=== PATIENT | female | born 1950 | race Caucasian/White ===

== ENCOUNTER 2017-10-17 12:35 | Inpatient (IN) | payer MEDICARE, SELFPAY ==
[~2017-10-17 12:35] MED LIST: ISOVUE-370 76%-LOCM 1 ML ONE
[2017-10-17 13:00] LABS: #Eosinphils 0.4 thou/uL (0.0-0.7); #Lymphocytes 2.9 thou/uL (1.20-3.40); #Monocytes 0.6 thou/uL (0.11-0.59); #Neutrophils 6.8 thou/uL (1.40-6.50); %Basophils 0.2 % (0.0-1.0); %Eosinophils 3.4 % (0.0-10.0); %Lymphocytes 27.2 % (21.0-51.0); %Monocytes 5.2 % (0.0-10.0); Hemoglobin 13.9 g/dL (12.0-16.0); Mean Corpuscular HGB CONC 34.3 g/dL (32.0-36.0); Mean Corpuscular Hemoglobin 31.2 pg (27.0-31.0); Mean Corpuscular Volume 90.9 fL (78.0-98.0); Mean Platelet Volume 6.4 fL (7.4-10.4); Platelet Count 258 thou/uL (130-400); RBC Distribution Width 11.6 % (11.5-14.5); Red Blood Cell (RBC) Count 4.45 mill/uL (4.20-5.40); White Blood Cell (WBC) Count 10.6 thou/uL (4.8-10.8)
[2017-10-17 13:12] LABS: ALT (SGPT) 19 U/L (8-55); AST (SGOT) 14 U/L (5-34); Albumin 4.2 g/dL (3.4-4.8); Alkaline Phosphatase 46 U/L (40-150); Anion Gap 13 mmol/L (10-20); BUN (Urea Nitrogen) 20 mg/dL (9.8-20.1); Bilirubin, Total 0.3 mg/dL (0.2-1.2); Calc. Creatinine Clearance 0 mL/min (70-130); Calcium 9.9 mg/dL (7.8-10.44); Carbon Dioxide 23 mmol/L (23-31); Chloride 110 mmol/L (98-107); Estimated GFR-MDRD 40; Globulin 2.5 g/dL (2.4-3.5); Glucose 132 mg/dL (80-115); Potassium 4.3 mmol/L (3.5-5.1); Protein, Total 6.7 g/dL (6.0-8.3); Sodium 142 mmol/L (136-145)
[2017-10-17 13:15] LABS: CKMB 1.7 ng/mL (0-6.6); Troponin I Less than 0.010 ng/mL (< 0.028)
[2017-10-17 13:37] LABS: INR-International Normal Ratio 1.1; Prothrombin Time 14.3 SEC (12.0-14.7)
[2017-10-17 13:39] LABS: PTT 20.7 SEC (22.9-36.1)
[2017-10-17 14:22] LABS: Acetaminophen Less than 6.0 mcg/mL (10.0-30.0); Alcohol Less than 10 mg/dL (Less than 10); Salicylate Less than 8.0 mg/dL (15.0-30.0)
[2017-10-17 14:36] LABS: Bilirubin Negative (Negative); Blood, Urine Trace (Negative); Clarity CLEAR (Clear); Glucose, Urine (Dipstick) Negative (Negative); Leukocyte Trace (Negative); Nitrite Negative (Negative); Protein, Urine (Dipstick) Negative (Neg-Trace); Specific Gravity, Urine 1.037 (1.002-1.036); Urobilinogen 0.2 mg/dL (0.2-1.0); pH, Urine 5.5 (5.0-9.0)
[2017-10-17 14:38] LABS: Bacteria/HPF None Seen HPF (None Seen); Hyaline Casts/LPF 0-3 HYALINE CAST LPF (0-3 Hyaline); Pathc Cast-AUWi Flag 0.29 (0-2.49); RBC/HPF 0-3 HPF (0-3); Squamous Epithelial 0-3 HPF (0-3)
--- NOTE | 2017-10-17 14:44 | CT ---
HEAD CT WITHOUT CONTRAST: DATE: 10/17/17. COMPARISON: None. HISTORY: Bilateral weakness and aphasia. TECHNIQUE: Serial axial CT imaging is obtained at 5 mm intervals from vertex through the skull base without cont rast. FINDINGS: The patient appears status post bilateral paranasal sinus surgery in the region of the maxillary sinu s outflow tracts. There is atherosclerotic calcification of the cavernous carotid arteries and dista l vertebral arteries. There is no acute osseous abnormality seen. No intracranial hemorrhage, midline shift, mass effect, or ventricular enlargement. IMPRESSION: No acute findings. Results called to Dr. Navarrete 12:46 p.m. 10/17/17. CODE CR POS: [facility]
[2017-10-17 14:48] LABS: Medtox Reader # READER 4; Tricyclic Screen Detected (NotDetected)
[2017-10-17 14:49] LABS: Amphetamine Not Detected (NotDetected); Barbiturates Screen Not Detected (NotDetected); Benzodiazepine Screen Not Detected (NotDetected); Cocaine Metabolite Screen Not Detected (NotDetected); Medtox Control Line Valid? VALID (VALID); Methadone Not Detected (NotDetected); Methamphetamine Not Detected (NotDetected); Opiate Screen Not Detected (NotDetected); Oxycodone Screen Not Detected (NotDetected); Phencyclidine (PCP) Not Detected (NotDetected); THC/Cannabinoid Screen Not Detected (NotDetected)
--- NOTE | 2017-10-17 15:20 | CT ---
CT ARTERIOGRAM NECK WITH IV CONTRAST AND 3D MIP IMAGING CT ARTERIOGRAM HEAD WITH IV CONTRAST AND 3D MIP IMAGING CT BRAIN WITH IV CONTRAST CT PERFUSION BRAIN: FINDINGS: There is good contrast flow into each carotid and vertebral artery with normal branching of the great vessels at the aortic arch. Minimal arterial calcification. Medial deviation of the right internal carotid artery. No significant carotid stenosis or dissection. [place] is intact. Good flow throughout each cerebral arterial system. No evidence of perf usion defect on the perfusion images. No abnormal areas of intracranial contrast enhancement. IMPRESSION: No significant abnormalities are demonstrated. Findings were called to Dr. Navarrete in the emergency department at 1311 hours. CODE CR POS: [facility]
--- NOTE | 2017-10-17 15:45 | HP ---
DATE OF ADMISSION: 10/17/2017 PRIMARY CARE PHYSICIAN: Dr. Yoseph Curran. REASON FOR ADMISSION: Altered mental status. HISTORY OF PRESENT ILLNESS: A 67-year-old female who has underlying history of hypertension, dyslipi demia, chronic low back pain and osteoarthritis who was brought to emergency room for altered mental status. The patient lives by herself at home. 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 Subsequently, her grandson went to her home and found her on the bed. She was les s responsive and she was incoherent. She was not talking properly and not providing correct answer. The patient was last seen normal last night before bedtime when the patient's daughter talked to her on phone. At that time, she was feeling weak and she was feeling tired and hung her phone. The patient's daughter is present who provides most of the history. They report that since the of the patient's , the patient is depressed and going downhill. She is taking a bunch of gris n medication at home. She does not take care of herself. She does not follow instructions. She bradford s not take medication regularly. She does not eat regularly. She does not drink regularly. The pat zechariah has trazodone and Flexeril on her home medication. In the emergency room, stroke alert was init iated and she had a CT brain, CT [place] and CT angiography of neck, which were normal. The patient was able to hold both lower extremities in particular position without any fall. The patien t did not have any facial asymmetry. The patient was intermittently arousable in the emergency room, but most of the time she was remaining sleepy, unable to get any history from her. REVIEW OF SYSTEMS: All review of systems tried to review with the patient, but unable to review leonela use the patient is extremely sleepy, lethargic and drowsy. PAST MEDICAL HISTORY: Chronic low back pain, osteoarthritis, hypertension, dyslipidemia. PAST SURGICAL HISTORY: Hysterectomy, cholecystectomy. PAST PSYCHIATRIC HISTORY: Anxiety and depression. SOCIAL HISTORY: The patient is . She does not have any history of tobacco, alcohol or illici t drug abuse based on family report. FAMILY HISTORY: No strong family history of premature coronary artery disease, stroke or cancer as p er family report. ALLERGIES: No known drug allergy. CURRENT HOME MEDICATIONS: Flexeril 10 mg 3 times daily, Zofran 4 mg q.8 hourly p.r.n., Lipitor 40 mg p.o. daily, vitamin D2 50,000 units once a week, TriCor 200 mg p.o. daily, trazodone 100 mg p.o. at bedtime, Keflex 500 mg q.8 hourly for 7 days, estradiol 2 mg p.o. daily. ADDITIONAL INFORMATION: The patient went to see primary care physician. She had some hematuria and a kidney stone and that is why she was given antibiotic therapy, which seems like she has finished co mpletely. EMERGENCY ROOM COURSE: Reviewed. PHYSICAL EXAMINATION: VITAL SIGNS: On arrival, blood pressure 133/86, pulse 92, respiratory rate 18, temperature 97.6, sat uration 93% on room air, weight did not measure yet. GENERAL: The patient is sleepy, not arousable. HEENT: Head, normocephalic, atraumatic. Eyes, pupils round and reactive to light. Extraocular musc le intact. No nystagmus. ENT, oropharynx within normal limits. Moist mucous membranes. No oral le landon, no pharyngeal erythema, no exudate. NECK: Supple, no JVD, no thyromegaly, no carotid bruit, no meningeal signs of irritation. LUNGS: Clear to auscultation without any rhonchi or rales. CARDIAC: S1, S2 regular. No murmur, no gallop, no rub. ABDOMEN: Soft, bowel sounds present, nontender, nondistended. No organomegaly, no mass, no suprapub ic tenderness. BACK: Unremarkable. No CVA tenderness. EXTREMITIES: Upper extremities, passive movement of all joints are normal. Lower extremities, no ed myriam. Good peripheral pulsation. SKIN: No skin rash. HEMATOLOGICAL: No lymphadenopathy. NEUROLOGIC: Unable to examine neurologically because the patient is not cooperative. She is sleepy. Detailed neurological examination is not possible, but noted that patient is holding both lower ext remities in bended position without any fall and she does not have any facial asymmetry. SIGNIFICANT LABORATORY DATA: CBC, WBC 10.6, hemoglobin 13.9, platelet 258,000. INR 1.1. BMP, sodiu m 142, potassium 4.3, chloride 110, carbon dioxide 23, anion gap 13, BUN 20, creatinine 1.32, glucose 132, calcium 9.9. LFT, AST 14, ALT 19, alkaline phosphatase 46, albumin 4.2, CK-MB 1.7. Troponin I less than 0.010. IMAGING: CT brain, based on my review, no acute intracranial process. CT head and neck angiography with perfusion study, negative for any stroke. ASSESSMENT AND PLAN: 1. Acute encephalopathy. Based on clinical history and examination, I am suspecting that medication overdoses are suspected. At this point, we will check urine drug screen. We will discontinue all h er sleeping medication today. We will wait for her arousability. We will consult Neurology. We kylie l check lipid profile, homocysteine for any remote possibility of stroke. We will monitor neurologic ally. We will monitor on telemetry floor. 2. Acute kidney injury. The patient will be given IV fluid, dextrose with NS at 100 mL per hour. 3. Dyslipidemia. We will continue TriCor 145 mg and Lipitor 40 mg p.o. at bedtime. 4. Chronic low back pain. We will hold on pain medication because of extreme sleepiness condition. Once awake, then we will resume the patient's selected home medication. 5. Deep venous thrombosis prophylaxis. Lovenox 40 mg subcu daily. 6. Gastrointestinal prophylaxis. Pepcid 20 mg p.o. b.i.d. 7. Protein calorie malnutrition. The patient will be given nutritional supplement with Ensure t.i.d . Disposition plan based on clinical course. The patient and family member given education about that patient may need psychiatric followup for her underlying possible depression. She will need family s upport. The patient will need PT, OT evaluation tomorrow and depending upon clinical improvement, we will consider next level of care. We will send urine culture and start empiric Rocephin 1 g q.24 ho urs for asymptomatic bacteriuria. Plan of care discussed with the family member at bedside in the em ergency room.
[2017-10-17] MEDS ORDERED: Ondansetron ODT 4 MG TAB SL PRN (16:23)
[2017-10-17] MEDS ORDERED: Acetaminophen 325 MG TAB PO PRN (16:23)
[2017-10-17] MEDS ORDERED: Ondansetron HCl/PF 4 MG/2 ML Vial IVP PRN (16:23)
[2017-10-17] MEDS ORDERED: HYDROcodone/Acetaminophen 5/325 mg Tablet PO PRN ×2 (16:23)
[2017-10-17] MEDS ORDERED: Senokot 8.6 MG TAB PO PRN (16:50)
[2017-10-17] MEDS ORDERED: hydrALAZINE 20 MG/ML VIAL SLOW IVP PRN (16:50)
[2017-10-17] MEDS ORDERED: Artificial Tears 18 DROP/0.9 ML EA EYE PRN (16:50)
[2017-10-17] MEDS ORDERED: Mag-Al 1200 mg/1200 mg/30 ML UDCUP PO PRN (16:50)
[2017-10-17] MEDS ORDERED: Ondansetron ODT 4 MG TAB PO PRN (16:50)
[2017-10-17] MEDS ORDERED: Sodium Chloride 0.65% Nasal 44 ML BOT EA NARE PRN (16:50)
[2017-10-17] MEDS ORDERED: Milk Of Magnesia 30 ML UDCUP PO PRN (16:50)
[2017-10-17] MEDS ORDERED: Diabetic Tussin 200 MG/10 ML UDCUP PO PRN (16:50)
[2017-10-17] MEDS ORDERED: Chloraseptic Spray 180 ml Bottle PO PRN (16:50)
[2017-10-17] MEDS ORDERED: Eucerin (Mineral Oil/Petrolatum,White) 30 gm Jar TOP PRN (16:50)
[2017-10-17] MEDS ORDERED: Loperamide HCl 2 MG CAP PO PRN (16:50)
[2017-10-17] MEDS: cefTRIAXone\\ROCEPHIN 1 GM in Sodium Chloride 0.9% 100 ML IVPB SCH (18:10)
[2017-10-17] MEDS: Dextrose 5 % And 0.9 % NaCl 1,000 ML IV SCH (18:10)
[2017-10-17 18:35] VITALS: BMI 24.8
[2017-10-17] MEDS: Atorvastatin Calcium 40 MG TAB PO SCH (21:17)
[2017-10-17] MEDS: Famotidine 20 MG TAB PO SCH (21:17)
[2017-10-17] MEDS: Ondansetron HCl/PF 4 MG/2 ML Vial IVP PRN (21:18)
[2017-10-18] MEDS: Dextrose 5 % And 0.9 % NaCl 1,000 ML IV SCH ×3 (04:04→16:07)
[2017-10-18] MEDS: Ondansetron HCl/PF 4 MG/2 ML Vial IVP PRN ×2 (05:01→21:32)
[2017-10-18] MEDS: Famotidine 20 MG TAB PO SCH ×2 (09:10→21:29)
[2017-10-18] MEDS: Fenofibrate Nanocrystallized 145 MG TAB PO SCH (09:10)
[2017-10-18] MEDS: Estradiol 1 MG TAB PO SCH (09:10)
[2017-10-18] MEDS: Enoxaparin Sodium 40 MG/0.4 ML SYRINGE SC SCH (09:10)
[2017-10-18] MEDS: Aspirin 325 mg Enteric Coated Tablet PO SCH (09:10)
[2017-10-18] MEDS: Acetaminophen 325 MG TAB PO PRN ×3 (10:20→21:29)
--- NOTE | 2017-10-18 10:36 | PDOC.PN ---
- Subjective Encounter Start Date: 10/18/17 Encounter Start Time: 07:40 Patient seen and examined. No new complaints. No overnight events - Objective Resuscitation Status: Resuscitation Status FULL:Full Resuscitation MAR Reviewed: Yes Vital Signs & Weight: Vital Signs (12 hours) Temp Pulse Resp BP Pulse Ox 10/18/17 07:36 97.8 F 88 16 132/70 99 10/18/17 04:00 97.5 F L 83 19 114/69 96 10/18/17 00:00 98.1 F 93 19 130/80 96 Weight Weight 136 lb I&O: 10/17/17 10/18/17 10/19/17 06:59 06:59 06:59 Intake Total 1350 Output Total 300 Balance 1050 Result Diagrams: 10/17/17 12:45 10/17/17 12:45 Additional Labs: Accuchecks 10/17/17 12:41 POC Glucose 128 H EKG Reviewed by me: Yes (nsr) Phys Exam - Physical Examination Constitutional: NAD HEENT: PERRLA, moist MMs, sclera anicteric Neck: no JVD, supple Respiratory: no wheezing, no rales, no rhonchi Cardiovascular: RRR, no significant murmur, no rub Gastrointestinal: soft, non-tender, no distention, positive bowel sounds Musculoskeletal: no edema, pulses present Neurological: non-focal, normal sensation, moves all 4 limbs Lymphatic: no nodes Psychiatric: normal affect, A&O x 3 Skin: no rash, normal turgor Dx/Plan (1) Acute kidney failure Status: Acute (2) Encephalopathy acute Code(s): G93.40 - ENCEPHALOPATHY, UNSPECIFIED Status: Resolved (3) Chronic low back pain Code(s): M54.5 - LOW BACK PAIN; G89.29 - OTHER CHRONIC PAIN Status: Chronic Qualifiers: Back pain laterality: left Sciatica laterality: sciatica of left side (4) Dyslipidemia Code(s): E78.5 - HYPERLIPIDEMIA, UNSPECIFIED Status: Chronic (5) Lumbar canal stenosis Code(s): M48.061 - SPINAL STENOSIS, LUMBAR REGION WITHOUT NEUROGENIC DRE Status: Chronic - Plan cont current plan of care * pt has underlying chronic low back pain with lumbar radiculopathy and she was overmadicating herself with flexeril and trazodone, that was contributing to her AMS, currently does not have focal deficit, she is more alert * will get MRI LS to rule out any need for surgery, she will need follow up with neurosurgery for that * will observe today and expecting discharge tomorrow * medication reviewed as below * symptomatic treatment * do PT/OT today * pain control. Review of Systems - Review of Systems Constitutional: negative: fever, chills, sweats, weakness, malaise, other Eyes: negative: Pain, Vision Change, Conjunctivae Inflammation, Eyelid Inflammation, Redness, Other ENT: negative: Ear Pain, Ear Discharge, Nose Pain, Nose Discharge, Nose Congestion, Mouth Pain, Mouth Swelling, Throat Pain, Throat Swelling, Other Respiratory: negative: Cough, Dry, Shortness of Breath, Hemoptysis, SOB with Excertion, Pleuritic Pain, Sputum, Wheezing Cardiovascular: negative: chest pain, palpitations, orthopnea, paroxysmal nocturnal dyspnea, edema, light headedness, other Gastrointestinal: negative: Nausea, Vomiting, Abdominal Pain, Diarrhea, Constipation, Melena, Hematochezia, Other Genitourinary: negative: Dysuria, Frequency, Incontinence, Hematuria, Retention , Other Musculoskeletal: Back Pain. negative: Neck Pain, Shoulder Pain, Arm Pain, Hand Pain, Leg Pain, Foot Pain, Other Neurological: negative: Weakness, Numbness, Incoordination, Change in Speech, Confusion, Seizures, Other - Medications/Allergies Allergies/Adverse Reactions: Allergies Allergy/AdvReac Type Severity Reaction Status Date / Time diflunisal [From Dolobid] Allergy Verified 10/17/17 16:07 Medications: Current Medications Acetaminophen (Tylenol) 650 mg PO Q4H PRN PRN Reason: Headache/Fever or Pain Last Admin: 10/18/17 10:20 Dose: 650 mg Al Hydroxide/Mg Hydroxide (Maalox) 30 ml PO Q6H PRN PRN Reason: Heartburn or Indigestion Artificial Tears (Tears Naturale) 0 drop EA EYE PRN PRN PRN Reason: Dry Eyes Aspirin (Ecotrin) 325 mg PO DAILY [facility] Last Admin: 10/18/17 09:10 Dose: 325 mg Atorvastatin Calcium (Lipitor) 40 mg PO HS [facility] Last Admin: 10/17/17 21:17 Dose: 40 mg Enoxaparin Sodium (Lovenox) 40 mg SC 0900 [facility] Last Admin: 10/18/17 09:10 Dose: 40 mg Estradiol (Estrace) 1 mg PO DAILY [facility] Last Admin: 10/18/17 09:10 Dose: 1 mg Famotidine (Pepcid) 20 mg PO BID [facility] Last Admin: 10/18/17 09:10 Dose: 20 mg Fenofibrate (Tricor) 145 mg PO DAILY [facility] Last Admin: 10/18/17 09:10 Dose: 145 mg Guaifenesin (Robitussin Sf) 200 mg PO Q4H PRN PRN Reason: Cough Hydralazine HCl (Apresoline) 10 mg SLOW IVP Q4H PRN PRN Reason: Systolic BP > 180 Dextrose/Sodium Chloride (D5 0.9% Ns) 1,000 mls @ 100 mls/hr IV .Q10H [facility] Last Admin: 10/18/17 04:04 Dose: 1,000 mls Ceftriaxone Sodium 1 gm/ (Sodium Chloride) 100 mls @ 200 mls/hr IVPB Q24HR [facility] Last Admin: 10/17/17 18:10 Dose: 100 mls Loperamide HCl (Imodium) 2 mg PO PRN PRN PRN Reason: Diarrhea/Loose Stools Magnesium Hydroxide (Milk Of Magnesium) 30 ml PO DAILYPRN PRN PRN Reason: Constipation Mineral Oil/White Petrolatum (Eucerin Cream) 0 gm TOP BIDPRN PRN PRN Reason: Dry Skin Ondansetron HCl (Zofran Odt) 4 mg PO Q6H PRN PRN Reason: Nausea/Vomiting Ondansetron HCl (Zofran) 4 mg IVP Q6H PRN PRN Reason: Nausea/Vomiting Last Admin: 10/18/17 05:01 Dose: 4 mg Phenol (Chloraseptic [place] 180 Ml Bot) 0 ml PO PRN PRN PRN Reason: Sore Throat Senna (Senokot) 2 tab PO HSPRN PRN PRN Reason: Constipation Sodium Chloride ([place] Nasal [place] 0.65%) 0 ml EA NARE QIDPRN PRN PRN Reason: Nasal Congestion Sodium Chloride (Flush - Normal Saline) 10 ml IVF PRN PRN PRN Reason: Saline Flush
--- NOTE | 2017-10-18 13:11 | MRI ---
NONCONTRAST ENHANCED MRI IMAGES OF THE BRAIN: History: Fall, weakness, aphasia. Technique: Multiplanar, multisequence noncontrast enhanced MRI images were obtained of the brain. FINDINGS: Images demonstrate no evidence of areas of diffusion restriction. No evidence of acute intracranial m asses, hemorrhages, strokes or contusions seen. The ventricles are of normal size. Normal flow voids seen in the major intracranial vessels. IMPRESSION: Unremarkable noncontrast enhanced MRI images of the brain. POS: [facility]
--- NOTE | 2017-10-18 13:27 | MRI ---
MRI CERVICAL SPINE WITHOUT CONTRAST: HISTORY: Bilateral lower extremity weakness, aphasia. The patient fell 2 days ago. COMPARISON: None. TECHNIQUE: A lumbar spine MRI is performed without intravenous Gadolinium administration. Multisequential, mult iplanar imaging is performed. FINDINGS: Symmetric signal intensity of the psoas muscles. There are T2 hyperintensities in the left renal cor thomas compatible with cysts. Conus medullaris terminates at the inferior aspect of T12. Heterogeneous marrow signal intensity in the lumbar spine likely due to senescent change. No loss of vertebral body height. No fracture. No significant STIR hyperintensity to suggest edema or ligamen tous injury. There are type I and type II Modic changes along the inferior left end plate of L4 and superior left end plate of L5. T12-L1: No significant central canal stenosis or foraminal narrowing. L1-L2: Desiccation with mild loss of disk space height. There are small left and right paracentral disk bulges. Mild central canal stenosis. Neural foramina are patent bilaterally. L2-L3: Generalized disk bulge, ligamentum flavum thickening, and facet hypertrophy result in moderat e to severe central canal stenosis. Mild right and minimal left neural foraminal narrowing. L3-L4: Adequate disk hydration. No significant loss of disk space height. Generalized disk bulge, ligamentum flavum thickening, and facet hypertrophy result I moderate to severe central canal stenosi s. Neural foramina are patent bilaterally. L4-L5: Moderate loss of disk space height. There is a broad-based disk bulge with a central and lef t subarticular superior disk protrusion. There is bilateral facet hypertrophy with a likely left-carmen ed synovial cyst. There is resultant severe central canal stenosis. There is narrowing of the left subarticular zone with obscuration of the traversing left L5 nerve root. There is also presumed mass effect upon the traversing left S1 nerve root without complete obscuration. Mild to moderate right and moderate left foraminal narrowing. L5-S1: No high-grade central canal stenosis. Neural foramina are patent. IMPRESSION: Degenerative disk disease of the lumbar spine as above. There is significant central canal stenosis at multiple levels as described above. POS: [facility]
[2017-10-18] MEDS: cefTRIAXone\\ROCEPHIN 1 GM in Sodium Chloride 0.9% 100 ML IVPB SCH (18:17)
[2017-10-18] MEDS: Atorvastatin Calcium 40 MG TAB PO SCH (21:29)
--- NOTE | 2017-10-18 22:23 | CON ---
DATE OF CONSULTATION: 10/18/2017 CONSULTING PHYSICIAN: Hospitalist Service. IMPRESSION: 1. Toxic encephalopathy secondary to medication overuse 2. Lumbar spinal stenosis with radicular pain. 3. Cervical spinal stenosis at C3-4 and C4-5 with some cord compression. PLAN: Neurosurgical followup as an outpatient. HISTORY OF PRESENT ILLNESS: Ms. Hernandez is a 67-year-old white female, who has been seen by Dr. Dami carmen at [facility] for management of left hip pain. This is attributed to lumbar spinal stenosis . She has had 3 epidural steroid injections. She was prescribing a combination of tramadol, Flexeri l, baclofen as well as some ongoing treatment with Seroquel. She apparently admits to having taken t oo much medication and was found naked lying in her bed. Her grandson was able to arouse her and she did not report any focal neurologic symptoms when she regained consciousness. He called EMS to have her brought in. She has had an MRI of the brain, which was normal. MRI of the cervical spine, [facility] was as noted above. Her laboratory studies were unremarkable. CTA of the cerebral vessels and car otids were also clear. Drug screen was positive for tricyclics. PAST MEDICAL HISTORY: Otherwise negative. SOCIAL HISTORY: Positive for tobacco. ALLERGIES: None. FAMILY HISTORY: Noncontributory. REVIEW OF SYSTEMS: No focal neurologic complaints. PHYSICAL EXAMINATION: GENERAL: She is a healthy appearing middle-aged woman, in no distress. HEENT: Pupils are equal and reactive. Conjunctivae are clear. NECK: Supple. EXTREMITIES: No cyanosis. NEUROLOGIC: She is alert and appropriate. Her speech is fluent. Her exam is nonfocal. SUMMARY: A 67-year-old woman, who overdosed on medications, resulting in sedation. She had some chr onic issues with pain that had not responded to medical management. She will likely need a surgical consultation. She also has cervical spinal stenosis that is moderately severe and raising some katelyn rn for possible cervical myelopathy. Again, Neurosurgery needs to weigh in on her case.
[2017-10-19] MEDS: Acetaminophen 325 MG TAB PO PRN ×3 (01:25→17:04)
[2017-10-19] MEDS: Ondansetron HCl/PF 4 MG/2 ML Vial IVP PRN (02:36)
[2017-10-19] MEDS: Dextrose 5 % And 0.9 % NaCl 1,000 ML IV SCH (04:58)
[2017-10-19] MEDS: Fenofibrate Nanocrystallized 145 MG TAB PO SCH (08:29)
[2017-10-19] MEDS: Aspirin 325 mg Enteric Coated Tablet PO SCH (08:30)
[2017-10-19] MEDS: Estradiol 1 MG TAB PO SCH (08:30)
[2017-10-19] MEDS: Famotidine 20 MG TAB PO SCH (08:30)
[2017-10-19] MEDS: Enoxaparin Sodium 40 MG/0.4 ML SYRINGE SC SCH (08:42)
--- NOTE | 2017-10-19 09:58 | DIS ---
DATE OF ADMISSION: 10/17/2017 DATE OF DISCHARGE: 10/19/2017 PRIMARY CARE PHYSICIAN: [facility] call admission. DISCHARGE DISPOSITION: Home. PRIMARY DISCHARGE DIAGNOSES: 1. Acute encephalopathy due to overuse of medication. 2. Acute kidney failure, improved. SECONDARY DISCHARGE DIAGNOSES: Chronic low back pain, lumbar stenosis, dyslipidemia. PRIMARY PROCEDURE/OPERATION: None. RADIOLOGICAL INVESTIGATION: CT brain normal. CT head and neck angiography with brain perfusion normal. MRI brain normal. MRI of the lumbar spine showed multilevel lumbar stenosis. SIGNIFICANT LABORATORY DATA: WBC 10.6, hemoglobin 13.9, platelet 258. INR 1.1 , creatinine 1.32. LFT normal. Electrolytes normal. Cardiac enzymes negative. LDL 97. Homocysteine 7.32. Urinalysis; leukocyte esterase small. Urine drug screen positive for tricyclic. Blood drug screen negative. Urine culture negative. DISCHARGE MEDICATIONS: Patient is advised to finish Keflex 500 mg p.o. q.6 hourly p.r.n., which was prescribed for her UTI, vitamin D2 50,000 units p.o. weekly, Zofran 4 mg q.8 hourly p.r.n., Lipitor 40 mg p.o. daily, Flexeril 10 mg t.i.d. p.r.n., Estrace 2 mg p.o. daily, fenofibrate 200 mg p.o. daily, trazodone 100 mg p.o. at bedtime, tramadol 50 mg t.i.d. p.r.n. CONTRAINDICATIONS: None. CODE STATUS: FULL CODE. INPATIENT SCRAPER OPERATOR: Dr. Jose Hennessy neurologist was consulted. TEST RESULTS PENDING ON DISCHARGE: None. ALLERGIES: DIFLUNISAL. DISCHARGE DISPOSITION: The patient is discharged home. DISCHARGE PLAN: Patient will be following up with primary care physician and neurosurgeon as an outpatient basis. HOSPITAL COURSE: A 67-year-old female who has chronic low back pain. The patient was brought to ER by paramedics for altered mental status. She was completely lethargic and sleepy. Stroke alert was initiated in the emergency room and she had CT brain, CT head and neck angiography with brain perfusion study that was normal. Her examination in the emergency room was also not consistent with stroke, but patient was not able to provide any history on admission. When she woke up the next day, patient reported that she was overusing her trazodone and Flexeril for her chronic back pain that made her sleepy. We did MRI brain which was normal. MRI lumbar spine did show lumbar radiculopathy and multilevel lumbar spine stenosis. She was following a neurosurgeon at [facility], but she does not like that neurosurgeon and that is why she was interested in following up in our neurosurgeon. We consulted neurosurgeon, Dr. Lloyd recommended that he will evaluate this patient as an outpatient basis which I agree. The patient was given Rocephin for asymptomatic UTI. Her cultures remain negative. She will finish her Keflex which was given recently. She will continue all her previous medications during this admission. This patient did not have any TIA or stroke. She will continue all her previous medicine. Necessary equipment she will get through primary care physician. The patient is seen and examined at bedside today. She is neurologically intact. She does have left-sided radicular pain which is chronic. PHYSICAL EXAMINATION: VITAL SIGNS: Vitals peñaloza, she is stable. Currently, temperature 97.9, pulse 92 , respiratory rate 16, saturation 98%, blood pressure 137/72 and weight 136 pounds. LUNGS: Clear to auscultation without any rhonchi or rales. CARDIAC: S1, S2 regular without any murmur. ABDOMEN: Soft and benign without any tenderness. No suprapubic tenderness. EXTREMITIES: No edema, no calf tenderness. NEUROLOGIC: Nonfocal examination other than radicular pain on the left side. REVIEW OF SYSTEMS: Negative other than back pain. The patient will follow up with the neurosurgeon and primary care physician. WALKER PRESCRIBED ON DISCHARGE MTDD
--- NOTE | 2017-10-19 15:10 | CT ---
CT ARTERIOGRAM NECK WITH IV CONTRAST AND 3D MIP IMAGING CT ARTERIOGRAM HEAD WITH IV CONTRAST AND 3D MIP IMAGING CT BRAIN WITH IV CONTRAST CT PERFUSION BRAIN: FINDINGS: There is good contrast flow into each carotid and vertebral artery with normal branching of the great vessels at the aortic arch. Minimal arterial calcification. Medial deviation of the right internal carotid artery. No significant carotid stenosis or dissection. [place] is intact. Good flow throughout each cerebral arterial system. No evidence of perf usion defect on the perfusion images. No abnormal areas of intracranial contrast enhancement. IMPRESSION: No significant abnormalities are demonstrated. Findings were called to Dr. Navarrete in the emergency department at 1311 hours. CODE CR
[2017-10-19 16:35] VITALS: BP 137/67; TEMP 98.8
== END 2017-10-19 17:37 | disposition home or self-care (01) | DRG 917 ==
LOC: ERS 12:35 → 2SE 15:41
PROVIDERS: ADMIT Internal Medicine; ATTEND Internal Medicine
DX: T40.4X1A Poisoning by other synthetic narcotics, accidental (unintentional), initial encounter (principal); G92 Toxic encephalopathy; E46 Unspecified protein-calorie malnutrition; N17.9 Acute kidney failure, unspecified; T48.1X1A Poisoning by skeletal muscle relaxants [neuromuscular blocking agents], accidental (unintentional), initial encounter; T42.8X1A Poisoning by antiparkinsonism drugs and other central muscle-tone depressants, accidental (unintentional), initial encounter; I10 Essential (primary) hypertension; E78.5 Hyperlipidemia, unspecified; G89.29 Other chronic pain; I08.1 Rheumatic disorders of both mitral and tricuspid valves; M19.90 Unspecified osteoarthritis, unspecified site; F41.9 Anxiety disorder, unspecified; F32.9 Major depressive disorder, single episode, unspecified; M48.061 Spinal stenosis, lumbar region without neurogenic claudication; Z90.49 Acquired absence of other specified parts of digestive tract; Z90.710 Acquired absence of both cervix and uterus
CPT/HCPCS: 0042T; 36415; 36416; 70450; 70496; 70498; 70551; 72148; 80053; 80061; 80306; 80307; 81003; 81015; 82553; 83090; 84484; 85025; 85610; 85730; 87086; 93005; 93306; G8978-GP-CL; G8979-GP-CJ; G8987-GO-CJ; G8988-GO-CI; G8996-GN-CH; G8997-GN-CH; J0696; J1650; J2405; J7050; Q0162

== ENCOUNTER 2018-07-18 10:50 | Day surgery (SDC) | payer MEDICARE ==
[2018-07-17 11:11] VITALS: BMI 20.7
[2018-07-18] MEDS ORDERED: Midazolam HCl 2 mg/2 ml Vial ONE (13:16)
[2018-07-18] MEDS ORDERED: Fentanyl 100 MCG/2 ML VIAL ONE (13:16)
--- NOTE | 2018-07-18 14:19 | MRI ---
LUMBAR SPINE MRI WITHOUT IV CONTRAST: History: Low back pain. Lumbar stenosis. Lumbar herniated nucleus pulposus. Left leg and back pain. Comparison: 10-18-17 FINDINGS: There are extensive multilevel disc osteophytosis and facet arthrosis changes and disc desiccation ch anges. Multiple bilateral renal T2 hyperintense foci statistically bilateral renal cysts. T12-L1: Unremarkable. L1-2: Disc osteophytosis with mild to moderate lateral recess stenosis. L2-3: Severe disc osteophytosis with moderate to severe central canal and severe lateral recess steno sis and moderate bilateral foraminal stenosis. L3-4: Severe disc osteophytosis with severe central canal, lateral recess, and moderate to severe rosalina ateral foraminal stenosis. L4-5: Type I endplate changes. Severe disc osteophytosis with severe central canal, lateral recess an d foraminal stenosis particularly on the left. L5-S1: Mild disc bulging without significant central canal or foraminal stenosis. IMPRESSION: Variable severity multilevel canal, lateral recess, and foraminal stenosis most marked at L4-5 with s ome associated type I endplate changes with little change from prior study. POS: [facility]
--- NOTE | 2018-07-18 16:59 | EKG ---
Test Reason : PREOP Blood Pressure : / mmHG Vent. Rate : 084 BPM Atrial Rate : 084 BPM P-R Int : 156 ms QRS Dur : 080 ms QT Int : 370 ms P-R-T Axes : 041 -07 041 degrees QTc Int : 437 ms Normal sinus rhythm Possible Inferior infarct , age undetermined Abnormal ECG When compared with ECG of 17-OCT-2017 13:18, No significant change was found Confirmed by DR. Deonte SIMPSON (3) on 07/18/2018 4:59:07 PM Referred By: NOEMI Confirmed By:DR. Deonte SIMPSON
== END 2018-07-18 15:25 | disposition home or self-care (01) ==
LOC: SDC/OP 10:50
PROVIDERS: ATTEND Surgery
DX: M51.26 Other intervertebral disc displacement, lumbar region (principal); M48.061 Spinal stenosis, lumbar region without neurogenic claudication; M25.78 Osteophyte, vertebrae
CPT/HCPCS: 72148; 93005; 93010; J2250; J3010

== ENCOUNTER 2018-08-15 08:15 | Day surgery (SDC) | payer MEDICARE ==
[2018-08-14 09:25] VITALS: BMI 20.2
[2018-08-15 09:48] LABS: INR-International Normal Ratio 1.1; PTT 24.5 SEC (22.9-36.1); Prothrombin Time 14.7 SEC (12.0-14.7)
[2018-08-15] MEDS ORDERED: Thrombin 5000 UNITS/5 ML VIAL ONE (11:00)
[2018-08-15] MEDS ORDERED: Sodium Chloride 0.9% 10 ML ONE (11:00)
[2018-08-15] MEDS ORDERED: Midazolam HCl 2 mg/2 ml Vial ONE (11:21)
[2018-08-15] MEDS ORDERED: Fentanyl 100 MCG/2 ML VIAL ONE ×4 (11:21→15:24)
[2018-08-15] MEDS ORDERED: Milk Of Magnesia 30 ML UDCUP PO PRN (14:56)
[2018-08-15] MEDS ORDERED: Promethazine HCl 25 MG/ML VIAL IM/IV PRN (14:56)
[2018-08-15] MEDS ORDERED: Bisacodyl 10 MG SUPP PR PRN (14:56)
[2018-08-15] MEDS ORDERED: Mag-Al 1200 mg/1200 mg/30 ML UDCUP PO PRN (14:56)
[2018-08-15] MEDS ORDERED: Fleet Enema 133 ML BOT PR PRN (15:00)
[2018-08-15] MEDS ORDERED: HYDROmorphone 2 MG/ML VIAL SLOW IVP PRN (15:10)
[2018-08-15] MEDS ORDERED: Promethazine HCl 25 MG/ML VIAL IM PRN (15:10)
[2018-08-15] MEDS ORDERED: PACU-Morphine 4MG/ML VIAL SLOW IVP PRN (15:10)
[2018-08-15] MEDS ORDERED: Ondansetron HCl/PF 4 MG/2 ML Vial IVP PRN (15:10)
[2018-08-15] MEDS ORDERED: Morphine Sulfate 2 MG/ML SYRINGE SLOW IVP PRN (15:10)
[2018-08-15] MEDS ORDERED: Promethazine HCl 25 MG/ML VIAL SLOW IVP PRN (15:10)
[2018-08-15] MEDS ORDERED: Meperidine HCl/PF 25 MG/ML VIAL SLOW IVP PRN (15:10)
[2018-08-15] MEDS ORDERED: Rizatriptan Benzoate 10 MG MLT TAB PO PRN (15:26)
[2018-08-15] MEDS ORDERED: Promethazine HCl 25 MG/ML VIAL ONE (15:29)
[2018-08-15] MEDS ORDERED: Morphine 2 MG/ML SYRINGE ONE ×2 (16:17→17:04)
[2018-08-15] MEDS ORDERED: Ondansetron PF 4 MG/2 ML Vial ONE (17:27)
[2018-08-15] MEDS: Sodium Chloride 0.9% 1,000 ML IV SCH (19:21)
[2018-08-15] MEDS: CEFAZOLIN 2 GM in Premix Bag 1 BAG IVPB SCH (19:22)
[2018-08-15] MEDS: traMADol HCl 50 MG TAB PO PRN (19:23)
[2018-08-15] MEDS ORDERED: Ondansetron ODT 4 MG TAB PO PRN (20:31)
[2018-08-15] MEDS: Ondansetron PF 4 MG/2 ML Vial IVP PRN (20:35)
[2018-08-15] MEDS: Morphine 2 MG/ML SYRINGE SLOW IVP PRN (20:35)
[2018-08-15] MEDS: traZODone HCl 50 MG TAB PO SCH (20:36)
[2018-08-15] MEDS: Magnesium Oxide 400 MG TAB PO SCH (20:36)
[2018-08-15] MEDS: Floranex Packet PO SCH (20:37)
[2018-08-15] MEDS: tiZANidine HCl 4 MG TAB PO PRN (22:40)
[2018-08-16] MEDS: CEFAZOLIN 2 GM in Premix Bag 1 BAG IVPB SCH (01:23)
[2018-08-16] MEDS: HYDROcodone/Acetaminophen 7.5/325 mg Tablet PO PRN (01:23)
[2018-08-16] MEDS: Sodium Chloride 0.9% 1,000 ML IV SCH ×2 (05:35→09:35)
[2018-08-16] MEDS: traMADol HCl 50 MG TAB PO PRN (05:37)
[2018-08-16] MEDS: Morphine 2 MG/ML SYRINGE SLOW IVP PRN (05:52)
[2018-08-16] MEDS: tiZANidine HCl 4 MG TAB PO PRN (08:31)
[2018-08-16] MEDS: Acetaminophen/Codeine 30-300mg Tablet PO PRN (08:32)
[2018-08-16] MEDS: Calcium Carbonate 600 MG TAB PO SCH (08:35)
[2018-08-16] MEDS: Bupropion 150 MG XL TAB PO SCH (08:35)
[2018-08-16] MEDS: Stress 600 With Zinc 1 TAB PO SCH (08:36)
[2018-08-16] MEDS: Atorvastatin Calcium 40 MG TAB PO SCH (08:36)
[2018-08-16] MEDS: Fenofibrate Nanocrystallized 145 MG TAB PO SCH (09:25)
--- NOTE | 2018-08-16 09:59 | PRG ---
DATE OF SERVICE: 08/16/2018 This is Miguel Woods PA-C dictating a report for Vineet Lloyd MD. SUBJECTIVE: Ms. Hernandez is postoperative day #1 having undergone multilevel lumbar laminectomies. She has almost complete resolution of her bilateral lower extremity symptoms, however, does have some incisional back pain. She also has a component of anxiety that is quite exacerbated at this time. We will work on adequate pain control, although must watch her low blood pressure readings and somewhat limit narcotics. She is also having some swallowing difficulties, although she is tolerating liquids and let her nurse know that she may have some Cepacol spray and lozenges as well as full liquid diet and to advance as tolerated. She remains with good strength in the bilateral lower extremities. She lives alone and will need inpatient rehab and I have discussed this with Case Management. She will require at least one more overnight stay in regard to adequate pain control, but overall the patient is moving in the right direction as she has improvement in leg pain. Please call with any changes in patient's neurologic deficit. Please call with any changes with patient's neurologic status. Job ID: [id number]
[2018-08-16] MEDS ORDERED: tiZANidine HCl 4 MG TAB PO PRN (11:12)
[2018-08-16] MEDS: Ketorolac Tromethamine 30 MG/ML VIAL IVP PRN ×2 (12:34→18:27)
[2018-08-16] MEDS: Ondansetron PF 4 MG/2 ML Vial IVP PRN (12:35)
[2018-08-16] MEDS: Acetaminophen 325 MG TAB PO PRN ×2 (17:07→21:07)
--- NOTE | 2018-08-16 20:40 | OP ---
DATE OF PROCEDURE: 08/15/2018 PAPER CONTROL CLERK: Chuck. PREPROCEDURE DIAGNOSES: Lumbar stenosis with low back and leg pain with left L4-L5 disk extrusion with compression with paracentral and foraminal component. POSTPROCEDURE DIAGNOSES: Lumbar stenosis with low back and leg pain with left L4-L5 disk extrusion with compression with paracentral and foraminal component. PROCEDURES PERFORMED: 1. L2-L3, L3-L4, L4-L5 laminectomies, partial facetectomies, foraminotomies; left L4-L5 diskectomy and left L4-L5 trans-facet diskectomy for decompression of lateral and far-lateral components of the exiting left L4 nerve root. 2. Use of operative microscope for microdissection. DESCRIPTION OF PROCEDURE: After informed consent was obtained from the patient, the patient was brought to the OR. Proper patient, pause, and identification were carried out. She was placed under excellent general endotracheal anesthesia and all appropriate points were padded. We identified the L2, L3, L4, L5 dorsal spines and lamina. A linear julissa was made over this area. This region was sterilely cleansed, prepared, and draped. Proper patient, pause, and identification were carried out. The wound was then opened with combination of sharp, monopolar, and blunt dissection. The L2, L3, L4, L5 lamina and spinous processes were exposed. Localization film confirmed our area of interest. We then performed an L2-L3, L3-L4, L4-L5 laminectomies, partial facetectomies, and foraminotomies with excellent decompression of the common dural tube and the nerve roots. I then proceeded over the shoulder of the traversing left L5 nerve root to do a paracentral diskectomy through a standard approach and then performed a trans-facet approach to decompress the exiting left L4 nerve root, both in the foramen and extraforaminal via left L4-L5 trans-facet approach. We had excellent decompression of the common dural tube and nerve roots. Copious irrigation occurred throughout and maximized hemostasis. The wound was closed in anatomic layers and closed following meticulous hemostasis and copious irrigation and vancomycin powder. Job ID: [id number]
[2018-08-16] MEDS ORDERED: Estradiol 1 MG TAB PO SCH (21:00)
[2018-08-16] MEDS ORDERED: Folic Acid 1 MG TAB PO SCH (21:00)
[2018-08-16] MEDS: Floranex Packet PO SCH (21:04)
[2018-08-16] MEDS: Magnesium Oxide 400 MG TAB PO SCH (21:06)
[2018-08-16] MEDS: traZODone HCl 50 MG TAB PO SCH (21:07)
[2018-08-17] MEDS: Acetaminophen/Codeine 30-300mg Tablet PO PRN (05:59)
[2018-08-17] MEDS: Sodium Chloride 0.9% 1,000 ML IV SCH (09:48)
[2018-08-17] MEDS: Fenofibrate Nanocrystallized 145 MG TAB PO SCH (10:04)
[2018-08-17] MEDS: Stress 600 With Zinc 1 TAB PO SCH (10:05)
[2018-08-17] MEDS: Bupropion 150 MG XL TAB PO SCH (10:06)
[2018-08-17] MEDS: Atorvastatin Calcium 40 MG TAB PO SCH (10:07)
[2018-08-17] MEDS: Calcium Carbonate 600 MG TAB PO SCH (10:07)
--- NOTE | 2018-08-17 10:18 | PRG ---
DATE OF SERVICE: 08/17/2018 This is Miguel Woods PA-C dictating a report for Vineet Lloyd MD. Ms. Hernandez is postoperative day #2, having undergone multilevel lumbar laminectomies. She is doing well postoperatively. She does have some incisional back pain, but resolution of her bilateral lower extremity pain. She has been up walking with therapy and states that she is a little bit more comfortable today. Her blood pressure has improved and we may be able to use muscle relaxants little more effectively. The patient states this helped to control her pain in the best yesterday. We will plan for dismissal today to inpatient rehab and I have completed the appropriate paperwork and discussed with Case Management. Appropriate outpatient education was given to the patient and she certainly understood that and she was continued to have some back pain; however, this would improve with time. I should note the patient has excellent strength in bilateral lower extremities and appears much more comfortable today than she did yesterday. We will plan for dismissal. Job ID: [id number]
[2018-08-17 11:21] VITALS: TEMP 100.1
[2018-08-17] MEDS: Acetaminophen 325 MG TAB PO PRN (11:26)
[2018-08-17 11:29] VITALS: BP 122/78
[2018-08-17] MEDS: HYDROcodone/Acetaminophen 7.5/325 mg Tablet PO PRN (11:30)
[2018-08-22] MEDS ORDERED: Ergocalciferol 1.25 MG(50,000 UNITS) CAP PO SCH (09:00)
== END 2018-08-17 12:17 ==
LOC: SDC 08:15 → SURG A 14:56 → SDC 08-17 12:17
PROVIDERS: ATTEND Surgery
PROC: 0ST20ZZ Resection of Lumbar Vertebral Disc, Open Approach (ICD-10-PCS; principal; 2018-08-15)
DX: M48.061 Spinal stenosis, lumbar region without neurogenic claudication (principal); M54.16 Radiculopathy, lumbar region; Z79.1 Long term (current) use of non-steroidal anti-inflammatories (NSAID); Z91.048 Other nonmedicinal substance allergy status
CPT/HCPCS: 36416; 76000; 85610; 85730; J0131; J0690; J1885; J2250; J2270; J2405; J2550; J3010; J3370; J3490; Q0162

== ENCOUNTER 2019-03-28 14:49 | Outpatient (CLI) | payer MEDICARE ==
--- NOTE | 2019-03-28 15:34 | RAD ---
LUMBAR SPINE FOUR VIEWS: HISTORY: Lumbar spinal stenosis. Radiculopathy. Hip pain. Leg pain. History of prior surgery. COMPARISON: 10/25/2017 FINDINGS: Laminectomy changes are noted at L3 and L4. There is extensive disk space narrowing at disk osteophyt osis at L4-L5. Mild grade 1 anterolisthesis of L3 on L4 but no abnormal translation between flexion a nd extension. IMPRESSION: 1. Postoperative laminectomy changes. 2. Severe disk narrowing and disk osteophytosis at L4-L5. 3. Stable mild anterolisthesis of L3 on L4 without abnormal translation between flexion and extension . POS: [facility]
== END 2019-03-28 14:50 | disposition home or self-care (01) ==
LOC: TBSIIMAG 14:49
PROVIDERS: ATTEND Physician Assistant Surgical
DX: M54.5 Low back pain (principal); M25.559 Pain in unspecified hip; M79.606 Pain in leg, unspecified; M53.3 Sacrococcygeal disorders, not elsewhere classified; M48.061 Spinal stenosis, lumbar region without neurogenic claudication; M25.78 Osteophyte, vertebrae; M43.16 Spondylolisthesis, lumbar region; Z98.890 Other specified postprocedural states
CPT/HCPCS: 72110; 72158; 82565

== ENCOUNTER 2019-04-20 12:26 | Day surgery (SDC) | payer MEDICARE ==
[2019-04-19 14:06] VITALS: BMI 20.7
[~2019-04-20 12:26] MED LIST changes: -ISOVUE-370 76%-LOCM 1 ML ONE; +Lidocaine 1% PF 5 ML VIAL ONE; +Magnevist 469MG/ML 20 ML VIAL ONE; +Ondansetron PF 4 MG/2 ML Vial ONE; +PROPOFOL 200 MG/20 ML VIAL ONE
--- NOTE | 2019-04-20 16:40 | MRI ---
MRI LUMBAR SPINE WITH AND WITHOUT CONTRAST: 04/20/19 INDICATIONS: Low back pain. Radiation to right hip and lower extremity. History of lumbar surgery August 2018. COMPARISON: MRI lumbar spine 07/18/18. Postoperative changes are now noted with posterior laminectomy change at L2-3, L3-4, and L4-5 levels. Postoperative changes seen in the posterior tissues with enhancement in the operative bed. There is no evidence of fluid, abscess, or pseudomeningocele. At L1-2, there is a mild diffuse disc bulge which is unchanged from the prior exam. This flattens the anterior thecal sac. There is mild facet hypertrophy. Mild central canal stenosis at this level agai n noted. At L2-3, posterior laminectomy changes are now noted. There is enhancement posteriorly at the operati ve site. Broad based disc bulge abuts the anterior thecal sac. There is facet hypertrophy. No signifi cant central canal or foraminal stenosis. At L3-4, posterior laminectomy changes with enhancement in the operative bed. Mild diffuse disc bulge abuts the anterior thecal sac, similar to the prior exam. Facet hypertrophy. No significant central canal or foraminal stenosis. At L4-5, postoperative changes seen. Enhancement is seen posteriorly. Enhancement of the epidural spa ce suggests discectomy. There is focal signal in the anterior spinal canal on the right which does no t enhance; however I cannot exclude small residual disc fragment. This does encroach into the right f oramina. Otherwise epidural tissues show diffuse enhancement consistent with postoperative change. No central canal stenosis. At L5-S1, mild disc bulge appears stable from prior exam without significant central canal or foramin al stenosis. IMPRESSION: Postoperative changes are now seen at L2-3, L3-4, and L4-5 levels as described above. POS: [facility]
== END 2019-04-20 17:30 | disposition home or self-care (01) ==
LOC: SDC/OP 12:26
PROVIDERS: ATTEND Surgery
DX: M54.5 Low back pain (principal); M25.551 Pain in right hip; M79.604 Pain in right leg; Z79.899 Other long term (current) drug therapy; Z88.8 Allergy status to other drugs, medicaments and biological substances; Z91.048 Other nonmedicinal substance allergy status; Z98.890 Other specified postprocedural states
CPT/HCPCS: 36415; 72158; 82565; 93005; 93010; A9579; J2001; J2405; J2704

== ENCOUNTER 2019-07-19 19:03 | Emergency (ER) | payer MEDICARE ==
[2019-07-19] MEDS ORDERED: Diazepam 5 MG TAB ONE (19:28)
[2019-07-19] MEDS ORDERED: Ketorolac Tromethamine 30 MG/ML VIAL ONE (19:28)
[2019-07-19] MEDS ORDERED: Fentanyl 100 MCG/2 ML VIAL ONE (20:21)
[2019-07-19] MEDS ORDERED: HYDROcodone/Acetaminophen 5/325 mg Tablet ONE (21:07)
== END 2019-07-19 21:11 | disposition home or self-care (01) ==
LOC: ERS 19:03
DX: M54.31 Sciatica, right side (principal); M41.9 Scoliosis, unspecified; I10 Essential (primary) hypertension; E78.00 Pure hypercholesterolemia, unspecified; E78.5 Hyperlipidemia, unspecified
CPT/HCPCS: 96372; 99283; J1885; J3010

== ENCOUNTER 2019-11-02 11:18 | Day surgery (SDC) | payer MEDICARE ==
[2019-11-01 09:21] VITALS: BMI 23.2
[~2019-11-02 11:18] MED LIST changes: -Lidocaine 1% PF 5 ML VIAL ONE; -Ondansetron PF 4 MG/2 ML Vial ONE; -PROPOFOL 200 MG/20 ML VIAL ONE
[2019-11-02] MEDS ORDERED: Metoclopramide HCl 10 MG/2 ML VIAL ONE (12:01)
[2019-11-02] MEDS ORDERED: Ondansetron PF 4 MG/2 ML Vial ONE (12:01)
[2019-11-02] MEDS ORDERED: Famotidine/PF 20 mg/2ml Vial ONE ×2 (12:01→12:48)
[2019-11-02] MEDS ORDERED: Lidocaine 1% PF 5 ML VIAL ONE (12:01)
[2019-11-02] MEDS ORDERED: PROPOFOL 200 MG/20 ML VIAL ONE (12:01)
[2019-11-02] MEDS ORDERED: Midazolam HCl 2 mg/2 ml Vial ONE (12:48)
[2019-11-02] MEDS ORDERED: Fentanyl 100 MCG/2 ML VIAL ONE ×2 (12:48→14:58)
--- NOTE | 2019-11-02 14:45 | MRI ---
MRI LUMBAR SPINE WITH AND WITHOUT CONTRAST: 11/02/19 HISTORY: Lumbar pain and radiculopathy. Comparison made to recent MRI lumbar spine of 04/20/19. FINDINGS: Vertebral bodies maintain height. Degenerative disc changes are seen throughout, most prominent at L3 -4 and L4-5. There is anterolisthesis at L3-4. There is increasing edema with central compression at L4 which has occurred since the prior exam. Edema along the superior end plate of L4 with mild superi or end plate compression is now noted. The other vertebral bodies maintain height and signal when com pared to prior study. L1-2: Broad based disc bulge is similar to the prior exam flattening the thecal sac resulting in mild stenosis. L2-3: Diffuse disc bulge is similar to the prior exam. Mild flattening of the thecal sac. Posterior l aminectomy change. No central canal or significant foraminal stenosis. L3-4: Anterolisthesis is present which has progressed since prior exam. Broad based disc bulge is mor e prominent and there is a central disc protrusion with slight superior extension. This protrusion is centrally and to the right and has right foraminal encroachment. There is posterior laminectomy campbell ge with facet hypertrophy and mild central canal stenosis. L4-5: Loss of disc space. Broad based disc bulge/protrusion. Posterior laminectomy change. Mild centr al canal stenosis. Bilateral foraminal stenosis, more severe on the left. L5-S1: Mild disc bulge. Prominent facet hypertrophy. Mild central canal stenosis. No significant fora giovanny stenosis. IMPRESSION: New edema along the superior end plate of L4 with mild superior end plate compression. Increasing ant erolisthesis at L3-4 with more prominent disc protrusion at L3-4 since prior exam as described above. The other levels appear stable from prior exam and are described above. POS: [facility]
== END 2019-11-02 16:02 | disposition home or self-care (01) ==
LOC: SDC/OP 11:18
PROVIDERS: ATTEND Surgery
DX: M51.16 Intervertebral disc disorders with radiculopathy, lumbar region (principal); M43.16 Spondylolisthesis, lumbar region; M48.061 Spinal stenosis, lumbar region without neurogenic claudication; M48.07 Spinal stenosis, lumbosacral region; G89.4 Chronic pain syndrome; M96.1 Postlaminectomy syndrome, not elsewhere classified; M47.26 Other spondylosis with radiculopathy, lumbar region; M46.1 Sacroiliitis, not elsewhere classified; M70.61 Trochanteric bursitis, right hip; M25.551 Pain in right hip; I10 Essential (primary) hypertension; K21.9 Gastro-esophageal reflux disease without esophagitis; E78.5 Hyperlipidemia, unspecified; M19.90 Unspecified osteoarthritis, unspecified site; F32.9 Major depressive disorder, single episode, unspecified; Z79.899 Other long term (current) drug therapy; Z88.8 Allergy status to other drugs, medicaments and biological substances; Z91.048 Other nonmedicinal substance allergy status
CPT/HCPCS: 72158; 82565; A9579; J2250; J2405; J2704; J2765; J3010; S0028

== ENCOUNTER 2019-12-10 07:38 | Outpatient (CLI) | payer MEDICARE, OTHER ==
[2019-12-10 14:15] LABS: PTT 23.7 sec (22.9-36.1); Prothrombin Time 13.5 sec (12.0-14.7)
[2019-12-10 14:21] LABS: Hemoglobin 13.1 g/dL (12.0-16.0); Mean Corpuscular HGB CONC 33.7 g/dL (32.0-36.0); Mean Corpuscular Hemoglobin 30.1 pg (27.0-31.0); Mean Corpuscular Volume 89.5 fL (78.0-98.0); Mean Platelet Volume 7.8 fL (7.4-10.4); Platelet Count 263 thou/uL (130-400); RBC Distribution Width 14.5 % (11.5-14.5); Red Blood Cell (RBC) Count 4.34 mill/uL (4.20-5.40); White Blood Cell (WBC) Count 5.5 thou/uL (4.8-10.8)
[2019-12-10 15:03] LABS: Anion Gap 13 mmol/L (10-20); BUN (Urea Nitrogen) 17 mg/dL (9.8-20.1); Calc. Creatinine Clearance 0 mL/min (70-130); Calcium 9.5 mg/dL (7.8-10.44); Carbon Dioxide 29 mmol/L (23-31); Chloride 103 mmol/L (98-107); Estimated GFR-MDRD 40; Glucose 107 mg/dL (80-115); Potassium 4.3 mmol/L (3.5-5.1); Sodium 141 mmol/L (136-145)
--- NOTE | 2019-12-10 18:09 | EKG ---
Test Reason : PREOP Blood Pressure : / mmHG Vent. Rate : 081 BPM Atrial Rate : 081 BPM P-R Int : 142 ms QRS Dur : 076 ms QT Int : 390 ms P-R-T Axes : 006 073 -08 degrees QTc Int : 453 ms Normal sinus rhythm Abnormal QRS-T angle, consider primary T wave abnormality Abnormal ECG Confirmed by DR. Deonte SIMPSON (3) on 12/10/2019 6:09:20 PM Referred By: Yogesh NOEL Confirmed By:DR. Deonte SIMPSON
[2019-12-11 15:27] LABS: SARS-CoV-2 MS2 Positive; SARS-CoV-2 N Gene Negative; SARS-CoV-2 S Gene Negative; SARS-CoV-2 by NAA Not Detected (NotDetected); SARS-CoV-2 orf1ab Negative
== END 2019-12-10 07:39 | disposition home or self-care (01) ==
LOC: LABBT 07:38
PROVIDERS: ATTEND Surgery
DX: Z01.818 Encounter for other preprocedural examination (principal); Z20.828 Contact with and (suspected) exposure to other viral communicable diseases; M51.16 Intervertebral disc disorders with radiculopathy, lumbar region
CPT/HCPCS: 80048; 85027; 85610; 85730; 93005; U0003; 87635; 93010

== ENCOUNTER 2019-12-13 06:07 | Day surgery (SDC) | payer MEDICARE ==
[2019-12-10 12:49] VITALS: BMI 23.2
[2019-12-13] MEDS ORDERED: Fentanyl 100 MCG/2 ML VIAL ONE ×4 (06:27→12:31)
[2019-12-13] MEDS ORDERED: Sodium Chloride 0.9% 0 ML ONE (06:40)
[2019-12-13] MEDS ORDERED: Thrombin 5000 UNITS/5 ML VIAL ONE (06:40)
[2019-12-13] MEDS ORDERED: Midazolam HCl 2 mg/2 ml Vial ONE (07:10)
[2019-12-13] MEDS ORDERED: Milk Of Magnesia 30 ML UDCUP PO PRN (09:24)
[2019-12-13] MEDS ORDERED: Fleet Enema 133 ML BOT PR PRN (09:24)
[2019-12-13] MEDS ORDERED: Bisacodyl 10 MG SUPP PR PRN (09:24)
[2019-12-13] MEDS ORDERED: diphenhydrAMINE 25 MG CAP PO PRN (09:24)
[2019-12-13] MEDS ORDERED: Acetaminophen 325 MG TAB PO PRN (09:24)
[2019-12-13] MEDS ORDERED: Mag-Al 1200 mg/1200 mg/30 ML UDCUP PO PRN (09:24)
[2019-12-13] MEDS ORDERED: HYDROcodone/Acetaminophen 7.5/325 mg Tablet PO PRN (09:24)
[2019-12-13] MEDS ORDERED: Promethazine HCl 25 MG/ML VIAL IM PRN ×2 (09:24→09:30)
[2019-12-13] MEDS ORDERED: Promethazine HCl 25 MG/ML VIAL SLOW IVP PRN (09:30)
[2019-12-13] MEDS ORDERED: Ondansetron HCl/PF 4 MG/2 ML Vial IVP PRN (09:30)
[2019-12-13] MEDS ORDERED: Labetalol HCl 100 MG/20 ML VIAL ONE (09:43)
[2019-12-13] MEDS ORDERED: Glycopyrrolate 0.2 MG/ML 5 ML SYRINGE ONE (10:32)
[2019-12-13] MEDS ORDERED: Lidocaine 1% PF 5 ML VIAL ONE (10:32)
[2019-12-13] MEDS ORDERED: Dexamethasone 20 MG/5 ML VIAL ONE (10:32)
[2019-12-13] MEDS ORDERED: PHENYLEPHRINE-NS 100 MCG/ML 10 ML SYRINGE ONE (10:32)
[2019-12-13] MEDS ORDERED: Ondansetron PF 4 MG/2 ML Vial ONE (10:32)
[2019-12-13] MEDS ORDERED: Rocuronium Bromide 10 MG/ML (10ML VIAL) ONE (10:32)
[2019-12-13] MEDS ORDERED: PROPOFOL 200 MG/20 ML VIAL ONE (10:32)
[2019-12-13] MEDS ORDERED: tiZANidine HCl 4 MG TAB ONE (11:10)
--- NOTE | 2019-12-13 14:53 | OP ---
DATE OF PROCEDURE: 12/13/2019 VICTIMS ADVOCATE CLERK/SPECIALIST: Kristal Titus PA-C. PREPROCEDURE DIAGNOSIS: Right L3 radiculopathy with lateral and far-lateral disk extrusion. POSTPROCEDURE DIAGNOSIS: Right L3 radiculopathy with lateral and far-lateral disk extrusion. PROCEDURES PROCEDURE: 1. Right L3-L4 trans-facet diskectomy for lateral and far lateral diskectomy. 2. Use of operative microscope for microdissection. DESCRIPTION OF PROCEDURE: After informed consent was obtained from the patient, the patient was brought to the OR. Proper patient, pause, and identification were carried out. She was placed under excellent general endotracheal anesthesia and positioned prone on the OR table. All appropriate points were padded. We identified the prior midline wound and this region was sterilely cleansed, prepared, and draped. A small incision was drawn out. This area was sterilely cleansed, prepared, and draped. We then opened the wound with a combination of sharp, monopolar, and blunt dissection, identified the right L3-L4 facet complex and pars defect. This was removed for a trans-facet approach, microscope was brought in for microdiskectomy. A right L3-L4 trans-facet diskectomy was performed with excellent decompression of the exiting right L3 nerve root with multiple lateral and far-lateral disk fragments removed. Copious irrigation occurred throughout as did maximizing hemostasis. The wound was closed in anatomic layers following sprinkling of vancomycin powder. The patient emerged from anesthesia. Job ID: [id number]
[2019-12-13] MEDS: Gabapentin 300 MG CAP PO SCH ×2 (15:00→20:38)
[2019-12-13] MEDS: CEFAZOLIN 2 GM in Premix Bag 1 BAG IVPB SCH (15:00)
[2019-12-13] MEDS: Sodium Chloride 0.9% 1,000 ML IV SCH (15:08)
[2019-12-13] MEDS: Ondansetron PF 4 MG/2 ML Vial IVP PRN (17:04)
[2019-12-13] MEDS: Morphine 2 MG/ML VIAL SLOW IVP PRN (20:41)
[2019-12-13] MEDS ORDERED: Mirtazapine 15 MG TAB PO SCH (21:00)
[2019-12-13] MEDS ORDERED: Lactinex Tablet PO SCH (21:00)
[2019-12-13] MEDS ORDERED: Atorvastatin Calcium 40 MG TAB PO SCH (21:00)
[2019-12-13] MEDS ORDERED: Fenofibrate Nanocrystallized 145 MG TAB PO SCH (21:00)
[2019-12-13] MEDS ORDERED: Estradiol 1 MG TAB PO SCH (21:00)
[2019-12-13] MEDS: HYDROcodone/Acetaminophen 7.5/325 mg Tablet PO PRN (22:38)
[2019-12-14] MEDS: CEFAZOLIN 2 GM in Premix Bag 1 BAG IVPB SCH (00:04)
[2019-12-14] MEDS: Sodium Chloride 0.9% 1,000 ML IV SCH ×2 (00:04→12:09)
[2019-12-14] MEDS: Morphine 2 MG/ML VIAL SLOW IVP PRN (01:06)
[2019-12-14] MEDS: tiZANidine HCl 4 MG TAB PO PRN ×2 (01:06→11:29)
[2019-12-14] MEDS: Gabapentin 300 MG CAP PO SCH (08:47)
[2019-12-14] MEDS ORDERED: Bupropion 150 MG XL TAB PO SCH (09:00)
[2019-12-14] MEDS ORDERED: Rizatriptan Benzoate 10 MG MLT TAB PO SCH (09:00)
[2019-12-14] MEDS ORDERED: Loratadine 10 MG TAB PO SCH (09:00)
[2019-12-14] MEDS: HYDROcodone/Acetaminophen 7.5/325 mg Tablet PO PRN (11:29)
[2019-12-14] MEDS: Ondansetron PF 4 MG/2 ML Vial IVP PRN (11:30)
[2019-12-14 11:42] VITALS: BP 129/89; TEMP 97.7
--- NOTE | 2019-12-14 13:19 | PRG ---
DATE OF SERVICE: 12/14/2019 Ms. Hernandez's pain in the right hip is much improved. I appreciate Dr. Rowe's assistance in managing her pain medication. She is doing well and that she is alert, appropriate, ambulating again with satisfactory pain control, and neurologically at her baseline. Job ID: [id number]
[2019-12-14] MEDS ORDERED: FLU VACC QS2020-21(65YR UP)/PF 240 MCG/0.7 ML SYRINGE IM ONE (14:45)
== END 2019-12-14 13:57 | disposition home or self-care (01) ==
LOC: SDC 06:07 → SURG A 12:57 → SDC 12-14 13:57
PROVIDERS: ATTEND Surgery
PROC: 0SB20ZZ Excision of Lumbar Vertebral Disc, Open Approach (ICD-10-PCS; principal; 2019-12-13)
DX: M51.16 Intervertebral disc disorders with radiculopathy, lumbar region (principal); Z79.899 Other long term (current) drug therapy; Z88.8 Allergy status to other drugs, medicaments and biological substances; Z91.048 Other nonmedicinal substance allergy status
CPT/HCPCS: 63056; 76000; J2270 ×2; J0690; J1100; J2250; J2405; J2704; J3010; J3370; J3490

== ENCOUNTER 2020-12-08 11:52 | Outpatient (CLI) | payer MEDICARE ==
[2020-12-08 23:35] LABS: SARS-CoV-2 PCR by NAA Not Detected (NotDetected)
== END 2020-12-08 11:53 | disposition home or self-care (01) ==
LOC: LABBT 11:52
PROVIDERS: ATTEND Specialist
DX: Z01.818 Encounter for other preprocedural examination (principal); G89.4 Chronic pain syndrome; M96.1 Postlaminectomy syndrome, not elsewhere classified; Z20.822 Contact with and (suspected) exposure to COVID-19
CPT/HCPCS: 93005; U0003; U0005; 93010

== ENCOUNTER 2020-12-11 11:36 | Day surgery (SDC) | payer MEDICARE ==
[2020-12-09 13:13] VITALS: BMI 23.2
[2020-12-11] MEDS ORDERED: CEFAZOLIN 1 GM VIAL ONE (12:26)
[2020-12-11] MEDS ORDERED: Sodium Chloride 0.9% 100 ML ONE (12:26)
[2020-12-11 12:39] LABS: #Basophils 0.1 thou/uL (0.0-0.2); #Eosinphils 0.6 thou/uL (0.0-0.7); #Lymphocytes 2.3 thou/uL (1.20-3.40); #Monocytes 0.5 thou/uL (0.11-0.59); #Neutrophils 5.1 thou/uL (1.40-6.50); %Basophils 0.6 % (0.0-1.0); %Eosinophils 7.2 % (0.0-10.0); %Lymphocytes 26.4 % (21.0-51.0); %Monocytes 5.8 % (0.0-10.0); %Neutrophils 60.1 % (42.0-75.0); Hemoglobin 12.3 g/dL (12.0-16.0); Mean Corpuscular HGB CONC 32.8 g/dL (32.0-36.0); Mean Corpuscular Hemoglobin 29.3 pg (27.0-31.0); Mean Corpuscular Volume 89.3 fL (78.0-98.0); Mean Platelet Volume 7.8 fL (7.4-10.4); Platelet Count 261 thou/uL (130-400); RBC Distribution Width 13.7 % (11.5-14.5); Red Blood Cell (RBC) Count 4.19 mill/uL (4.20-5.40); White Blood Cell (WBC) Count 8.5 thou/uL (4.8-10.8)
[2020-12-11] MEDS ORDERED: Fentanyl 100 MCG/2 ML VIAL ONE (14:23)
[2020-12-11] MEDS ORDERED: Propofol 500 MG/50 ML VIAL ONE (14:23)
[2020-12-11] MEDS ORDERED: Famotidine/PF 20 mg/2ml Vial ONE (14:23)
[2020-12-11] MEDS ORDERED: Midazolam HCl 2 mg/2 ml Vial ONE (14:23)
[2020-12-11] MEDS ORDERED: Lidocaine 1% w/Epinephrine 1:100K 20 ML VIAL ONE (14:41)
[2020-12-11] MEDS ORDERED: Bupivacaine PF 0.5% 30 ML VIAL ONE (14:41)
[2020-12-11] MEDS ORDERED: Lidocaine 1% PF 5 ML VIAL ONE (14:50)
[2020-12-11] MEDS ORDERED: PHENYLEPHRINE-NS 100 MCG/ML 10 ML SYRINGE ONE (14:50)
[2020-12-11] MEDS ORDERED: Ondansetron PF 4 MG/2 ML Vial ONE (14:50)
[2020-12-11] MEDS ORDERED: PROPOFOL 200 MG/20 ML VIAL ONE (14:50)
[2020-12-11] MEDS ORDERED: traMADol HCl 50 MG TAB ONE (16:37)
== END 2020-12-11 17:25 | disposition home or self-care (01) ==
LOC: SDC 11:36
PROVIDERS: ATTEND Specialist
PROC: 0JH70DZ Insertion of Multiple Array Stimulator Generator into Back Subcutaneous Tissue and Fascia, Open Approach (ICD-10-PCS; principal; 2020-12-11)
PROC: 00HU3MZ Insertion of Neurostimulator Lead into Spinal Canal, Percutaneous Approach (ICD-10-PCS; 2020-12-11)
DX: M96.1 Postlaminectomy syndrome, not elsewhere classified (principal); G89.4 Chronic pain syndrome; M54.16 Radiculopathy, lumbar region; Z79.01 Long term (current) use of anticoagulants; Z79.899 Other long term (current) drug therapy; Z88.5 Allergy status to narcotic agent; Z88.8 Allergy status to other drugs, medicaments and biological substances; Z91.048 Other nonmedicinal substance allergy status
CPT/HCPCS: 72072; 76000; 85025; C1778; C1787; C1820; J0690; J2250; J2405; J2704; J3010; J3490; L8689; S0020; S0028

== ENCOUNTER 2023-05-18 08:33 | Outpatient (CLI) | payer MEDICARE | END 2023-05-18 08:34 | disposition home or self-care (01) | LOC: NM 08:33 | PROVIDERS: ATTEND Psychiatry & Neurology Neurology | DX: R29.818 Other symptoms and signs involving the nervous system (principal) | CPT/HCPCS: 78803; A9584 ×2 ==